=== PATIENT | male | born 1960 | race Caucasian/White ===

== ENCOUNTER → 2017-02-28 | Day surgery (SDC) | payer MEDICARE ==
[~2017-02-28] MED LIST: ACYCLOVIR800 MG PO; AMOXICILLIN 50500 MG PO; ASPIRIN 81MG TA81 MG PO; BACTRIM DS 8001 TAB PO; BRILINTA90 MG PO; CIPRO 500MG TA500 MG PO; COREG 3.125M3.125 MG PO; DARVOCET-N 1001 EACH PO; FAMCICLOVIR500 MG PO; FLEXERIL10 MG PO; FLUOXETINE20 MG PO; GLIPIZIDE5 MG PO; IBU-8800 MG PO; ISOSORBIDE30 MG PO; LIPITOR20 M1 PO; LIPITOR80 MG PO; LISINOPRIL 10MG10 MG PO; MELOXICAM7.5 MG PO; METFORMIN 500M500 MG PO; METFORMIN HCL1000 MG PO; METFORMIN1000 MG PO; METOPROLOL25 MG PO; NORCO 325 MG-51 TAB PO; PREDNISONE 10MG10 MG PO; ROPINIROLE HYD0.5 MG PO; SIMVASTATIN10 MG PO; TOPCARE OMEPRAZ20 MG PO; ULTRACET 325 MG1 TAB PO
[2017-02-28 08:04] LABS: LYMPH # 3.3 K/mm3 (0.7-4.5); LYMPH % 21.1 % (10-50)
[2017-02-28 08:12] LABS: BUN 32 mg/dL (7-18); GFR (ESTIMATED) 77 ML/MIN (>60)
[2017-02-28 08:37] LABS: NEUTROPHILS 61 % (42-76)
[2017-02-28 16:50] VITALS: BP 158/90
--- NOTE | 2017-03-03 12:00 | RADIOLOGY REPORT PS360 ---
CARDIAC CATHETERIZATION DATE OF CATHETERIZATION:03/03/2017 11:24 AM PROCEDURES: 1. Stent deployment to the first diagonal artery 2. Stent deployment to the ostial proximal LAD 3. Stent deployment to the second obtuse marginal artery off the circumflex artery 4. Stent deployment to the left main artery 5. Stent deployment to the first obtuse marginal artery off the circumflex artery INDICATION FOR TEST: 1. Coronary artery disease 2. Angina pectoris class III and IV 3. History of chronic kidney disease currently 1.5 4. Staged interventional procedure based on elevated creatinine Informed consent was obtained prior to the procedure. COMPLICATIONS: None ESTIMATED BLOOD LOSS: Less than 10 ml. TECHNIQUE: One percent lidocaine was used to anesthetize the right groin. The right femoral artery was accessed via the Seldinger technique. A 6 Pashto sheath was placed in the right femoral artery and 6000 units of heparin was administered intravenously. An EBU 3.75 guide catheter was used intubate the left main artery and a wire was used to traverse the stenosis in the diagonal artery. A 2.25 x 38 mm resolute [place] stent was deployed at 12 lázaro reducing the stenosis to 0%. A residual stenosis was identified in the ostial proximal LAD for 2.25 x 26 mm resolute [place] stent was placed in the ostial proximal LAD feeding the large diagonal artery. Excellent angiographic results were obtained following this the wire was placed into the circumflex artery and then used to cannulate the second obtuse marginal artery. A 2.5 mm balloon was used to predilate the stenosis in the second obtuse marginal artery and this followed with a 2.5 x 30 mm resolute stent being deployed at 12 lázaro. Residual stenosis was identified proximally extending back toward the left main therefore a 2.5 x 38 mm resolute stent was then deployed at the ostium of the left main artery extending down into the mid circumflex artery overlapping the first circumflex artery stent placed and deployed at 18 lázaro. The wire was then pulled out of the second obtuse marginal artery and placed into the first obtuse marginal artery which had jailed and was occluded. Once wire to 2 mm balloon was used to predilate the stenosis and a 2.25 x 18 mm resolute [place] stent was deployed at 12 lázaro reducing the stenosis to 0%. Excellent angiographic results were obtained with BESSY-3 flow down the LAD diagonal artery the circumflex artery and 2 obtuse marginal arteries before and after the procedure. To ACTs were obtained with the first ACT being out of range in the second ACT 212 seconds at the end of the case therefore an additional 3000 units of heparin was administered intravenously. IMPRESSION: 1. Successful stenting of the large first diagonal artery severe disease reduced to less than 10% with 1 drug-eluting stent 2. Successful stenting of the ostial proximal LAD extending into the first diagonal artery, severe disease reduced to 0% with 1 drug-eluting stent 3. Successful reconstruction of the first and second obtuse marginal artery bifurcation with stents extending both proximally and back into the left main artery as described above PLAN: 1. Effient and aspirin 2. Risk factor modification 3. Cardiac rehabilitation 4. LDL less than 55 5. Avoidance of tobacco products
== END ==
LOC: CATHLAB 07:35
PROVIDERS: Internal Medicine
PROC: 027337Z Dilation of Coronary Artery, Four or More Arteries with Four or More Drug-eluting Intraluminal Devices, Percutaneous Approach (ICD-10-PCS; principal; 2017-02-28 09:45)
DX: I21.4 Non-ST elevation (NSTEMI) myocardial infarction (principal); I25.118 Atherosclerotic heart disease of native coronary artery with other forms of angina pectoris; Z72.0 Tobacco use; N18.9 Chronic kidney disease, unspecified; Z95.1 Presence of aortocoronary bypass graft; Z95.5 Presence of coronary angioplasty implant and graft; I12.9 Hypertensive chronic kidney disease with stage 1 through stage 4 chronic kidney disease, or unspecified chronic kidney disease
CPT/HCPCS: C1725; C1760; C1769; C1876; C1894; J1644; Q9967